=== PATIENT | female | born 1960 | race American Indian/Alaskan Native ===

== ENCOUNTER 2016-05-23 08:55 | Outpatient (CLI) | payer OTHER ==
--- NOTE | 2016-05-23 15:00 | Fluoroscopy Report ---
MODIFIED BARIUM SWALLOW: A modified barium swallow was performed with the aid of the speech pathologist. Fluoroscopic observation with multiple consistencies of barium was performed. Please see speech pathologist's notes for impression.
== END 2016-05-23 08:56 | disposition home or self-care (01) ==
LOC: PT 08:55
PROVIDERS: ATTEND Otolaryngology
DX: R13.10 Dysphagia, unspecified (principal)
CPT/HCPCS: 74230

== ENCOUNTER 2016-06-03 07:50 | Day surgery (SDC) | payer OTHER ==
[2016-06-03 08:44] VITALS: BP 126/75
== END 2016-06-03 10:00 | disposition home or self-care (01) ==
LOC: OPU 07:50 → EDSTATUS 08:30 → OPU 10:00
PROVIDERS: ATTEND Otolaryngology
DX: E04.1 Nontoxic single thyroid nodule (principal); Z53.8 Procedure and treatment not carried out for other reasons; M19.90 Unspecified osteoarthritis, unspecified site; K21.9 Gastro-esophageal reflux disease without esophagitis; Z83.3 Family history of diabetes mellitus; Z82.49 Family history of ischemic heart disease and other diseases of the circulatory system; Z98.890 Other specified postprocedural states
CPT/HCPCS: 76536

== ENCOUNTER 2016-09-12 06:10 | Day surgery (SDC) | payer OTHER ==
[2016-09-12] MEDS ORDERED: NACL 0.9% 1000 ML 1,000 ML IV SCH (08:00)
== END 2016-09-12 06:11 | disposition home or self-care (01) ==
LOC: GIO 06:10
PROVIDERS: ATTEND Internal Medicine Gastroenterology
DX: K21.9 Gastro-esophageal reflux disease without esophagitis (principal); Z53.8 Procedure and treatment not carried out for other reasons

== ENCOUNTER 2016-09-23 06:14 | Day surgery (SDC) | payer OTHER ==
[2016-09-23] MEDS ORDERED: WATER FOR IRRIG STERILE IR ONE (07:19)
[2016-09-23] MEDS ORDERED: DIPRIVAN 10 MG/ML IV ONE (07:22)
[2016-09-23] MEDS ORDERED: NACL 0.9% 1000 ML 1,000 ML ONE (07:32)
[2016-09-23] MEDS ORDERED: WATER FOR IRRIG STERILE ONE (07:39)
--- NOTE | 2016-09-23 08:40 | Short Stay Summary ---
Short Stay Documentation - Allergies and Medications Current Medications: Allergies Penicillins Allergy (Verified 09/09/16 09:49) Nausea & Vomiting IV DYE Allergy (Uncoded 09/13/13 14:09) Hives Home Medications Medication Instructions Recorded Confirmed Last Taken Type Hydroxychloroquine [Plaquenil] 2 tab PO QDAY 08/18/15 09/23/16 09/19/16 11:00 History Albuterol Sulfate [Albuterol 0.63% 0.63 mg IH TID PRN 09/23/16 09/23/16 22:00 History NEBS] Pantoprazole [Protonix] 40 mg PO QDAY 09/23/16 09/23/16 09/18/16 11:00 History - Brief post op/procedure progress note Date of procedure: 09/23/16 Pre-op diagnosis: 1. Dysphagia 2. Functional dyspepsia 3. Epigastric pain Post-op diagnosis: same (1. GERD 2. Gastritis 3. Duodenitis) Procedure: EGD with biopsy Anesthesia: MAC Findings: as above Surgeon: NELLI ANDERSON Estimated blood loss: none Pathology: list (Antrum) Specimen disposition: to lab Condition: stable - Disposition Condition at discharge: Stable Disposition: DC-01 TO HOME OR SELFCARE Short Stay Discharge Plan Activity: no restrictions Weight Bearing Status: Full Weight Bearing Diet: regular Follow up with: GALILEO JOLLEY MD [Primary Care Provider] - 7 Days
--- NOTE | 2016-09-23 08:50 | Anesthesia Consultation ---
Anesthesia Consult and Med Hx Date of service: 09/23/16 - Airway Anesthetic Teeth Evaluation: Good ROM Head & Neck: Adequate Mental/Hyoid Distance: Adequate Mallampati Class: Class II Intubation Access Assessment: Probably Good - Pulmonary Exam CTA: Yes - Cardiac Exam Cardiac Exam: RRR - Pre-Operative Health Status ASA Pre-Surgery Classification: ASA2 Proposed Anesthetic Plan: MAC - Pulmonary Hx Smoking: No Hx Asthma: Yes (inhaler prn) SOB: Yes (OCCASIONAL SOB) Hx Sleep Apnea: No (LOW RISK) - Cardiovascular System Hx Hypertension: No Hx Heart Attack/AMI: No - Central Nervous System Hx Neuromuscular Disorder: No (lupus) Hx Seizures: No CVA: No Hx Psychiatric Problems: No - Endocrine Hx Renal Disease: No Hx Liver Disease: No Hx Non-Insulin Dependent Diabetes: No Hx Thyroid Disease: Yes (sp thyroidectomy) - Hematic Hx Anemia: No Hx Sickle Cell Disease: No - Other Systems Hx Alcohol Use: No Hx Substance Use: No Hx Cancer: No
--- NOTE | 2016-09-23 08:50 | Anesthesia Day of Surgery ---
Anesthesia Day of Surgery - Day of Surgery Patient Examined: Yes Patient H&P Reviewed: Yes Patient is NPO: Yes
[2016-09-23 09:11] VITALS: BP 129/66
--- NOTE | 2016-09-23 09:21 | Post Anesthesia Evaluation ---
- Post Anesthesia Evaluation Patient Participated: Yes Airway Patent: Yes Stable Respiratory Function: Yes Temp > 96.8F: Yes Pain Manageable: Yes Adequeate Hydration: Yes Anesthesia Complications: No Block Receding Appropriately: Not Applicable
[2016-09-23] MEDS ORDERED: NACL 0.9% 1000 ML 1,000 ML IV SCH (10:00)
== END 2016-09-23 06:15 | disposition home or self-care (01) ==
LOC: GIO 06:14
PROVIDERS: ATTEND Internal Medicine Gastroenterology
DX: K21.9 Gastro-esophageal reflux disease without esophagitis (principal); K29.70 Gastritis, unspecified, without bleeding; K29.80 Duodenitis without bleeding; M19.90 Unspecified osteoarthritis, unspecified site; J45.909 Unspecified asthma, uncomplicated; Z88.0 Allergy status to penicillin; Z91.041 Radiographic dye allergy status; Z79.899 Other long term (current) drug therapy; Z90.710 Acquired absence of both cervix and uterus; Z98.890 Other specified postprocedural states; Z83.71 Family history of colonic polyps
CPT/HCPCS: 43239; 88305; 88342; J2704; J7030